=== PATIENT | female | born 1970 | race Caucasian/White ===

== ENCOUNTER → 2020-07-15 | Outpatient (CLI) | payer BC, OTHER ==
[~2020-07-15] MED LIST: None at this Time
[2020-07-15 14:07] LABS: BASOPHILS # (AUTO) 0.02 x10^3/uL (0-0.1); BASOPHILS % (AUTO) 1 % (0-1); EOSINOPHILS # (AUTO) 0.04 x10^3/uL (0-0.4); EOSINOPHILS % (AUTO) 1 % (1-7); LYMPHOCYTES # (AUTO) 1.11 x10^3/uL (1-3.4); LYMPHOCYTES % (AUTO) 26 % (22-44); MEAN CORPUSCULAR HEMOGLOBIN 28.6 pg (27.0-34.8); MEAN CORPUSCULAR HGB CONC 33.6 g/dL (32.4-35.8); MEAN CORPUSCULAR VOLUME 85.2 fL (80-100); MEAN PLATELET VOLUME 8.1 fL (7.4-10.4); MONOCYTES # (AUTO) 0.25 x10^3/uL (0.2-0.8); MONOCYTES % (AUTO) 6 % (2-9); NEUTROPHILS # (AUTO) 2.86 x10^3/uL (1.8-6.8); NEUTROPHILS % (AUTO) 67 % (42-75); PLATELET COUNT 288 x10^3/uL (130-400); RED BLOOD COUNT 4.61 x10^6/uL (3.82-5.3); RED CELL DISTRIBUTION WIDTH 12.9 % (9.6-15.2)
[2020-07-15 14:08] LABS: MD NO
[2020-07-15 14:10] LABS: ANION GAP 4 mmol/L (5-15); CALCIUM 8.9 mg/dL (8.5-10.1); CHLORIDE 110 mmol/L (98-107); CREATININE 0.59 mg/dL (0.55-1.02)
== END | disposition home or self-care (01) ==
LOC: STAR 13:09
PROVIDERS: ATTEND Obstetrics & Gynecology Maternal & Fetal Medicine
DX: Z01.818 Encounter for other preprocedural examination (principal)
CPT/HCPCS: 36415; 80048; 84702; 85025

== ENCOUNTER → 2020-07-17 | Outpatient (CLI) | payer OTHER | END | disposition home or self-care (01) | LOC: STAR 14:49 | PROVIDERS: ATTEND Anesthesiology | DX: Z01.818 Encounter for other preprocedural examination (principal); Z11.59 Encounter for screening for other viral diseases | CPT/HCPCS: 36415; 87635 ==

== ENCOUNTER 2020-07-22 13:18 | Observation (INO) | payer BC, OTHER ==
[~2020-07-22] VITALS: Ht 160 cm; Wt 72.9 kg
[2020-07-22] MEDS ORDERED: LACTATED RINGERS 1,000 ML IV SCH (14:06)
[2020-07-22] MEDS ORDERED: LIDOCAINE-MPF 1%, 2ML ONE (14:24)
[2020-07-22 14:27] LABS: HCG UR SG 1.006 (1.003-1.030)
[2020-07-22] MEDS ORDERED: PLEASE ENTER ALLERGIES MC SCH (14:30)
[2020-07-22] MEDS ORDERED: CHLORHEXIDINE 15 ML UDC MM ONE (14:30)
[2020-07-22] MEDS ORDERED: MIDAZOLAM 1 MG/ML, 2ML ONE (15:15)
[2020-07-22] MEDS ORDERED: FENTANYL PF 250 MCG/5ML ONE (15:15)
[2020-07-22] MEDS ORDERED: SCOPOLAMINE 1MG PATCH TD SCH ×2 (15:30)
[2020-07-22] MEDS ORDERED: ACETAMINOPHEN 500 MG TABLET PO ONE ×2 (15:30→16:00)
[2020-07-22] MEDS ORDERED: SCOPOLAMINE 1MG PATCH TD ONE (15:33)
[2020-07-22] MEDS ORDERED: ACETAMINOPHEN 500 MG TABLET ONE (15:34)
[2020-07-22] MEDS ORDERED: EPINEPHRINE 1 MG/ML, 1ML ONE (15:45)
[2020-07-22] MEDS ORDERED: BUPIVACAINE/PF 0.25% ONE (15:45)
[2020-07-22] MEDS ORDERED: FLUORESCEIN SODIUM 500 MG/5 ML ONE (15:45)
[2020-07-22] MEDS ORDERED: NEOSPORIN OINT, 15GM ONE (15:45)
[2020-07-22] MEDS ORDERED: PROPOFOL 50 ML ONE ×2 (15:59→16:59)
[2020-07-22] MEDS ORDERED: SUGAMMADEX 200 MG/2 ML IVPush ONE (16:10)
[2020-07-22] MEDS ORDERED: METOCLOPRAMIDE 5 MG/ML, 2ML ONE (16:10)
[2020-07-22] MEDS ORDERED: hydrALAzine 20 MG/ML, 1ML IV PRN (17:00)
[2020-07-22] MEDS ORDERED: METHOCARBAMOL 1,000 MG in DEXTROSE 5% 100 ML IV PRN (17:00)
[2020-07-22] MEDS ORDERED: MEPERIDINE/PF 25MG/0.5ML IVPush PRN (17:00)
[2020-07-22] MEDS ORDERED: HYDROmorphone 1 MG/ML, 1ML INJ IVPush PRN (17:00)
[2020-07-22] MEDS ORDERED: LABETALOL 5MG/ML, 20ML IV PRN (17:00)
[2020-07-22] MEDS ORDERED: ALBUTEROL SULFATE 2.5 MG/3 ML NPPB PRN (17:00)
[2020-07-22] MEDS ORDERED: OXYcodone 5 MG/5 ML ORAL.SOL UDC PO PRN (17:00)
[2020-07-22] MEDS ORDERED: PROMETHAZINE 25 MG/ML, 1ML IVPush PRN (17:00)
[2020-07-22] MEDS ORDERED: LORazepam 2 MG/ML, 1ML IVPush PRN (17:00)
[2020-07-22] MEDS ORDERED: FENTANYL PF 100 MCG/2ML ONE ×2 (17:33→18:23)
[2020-07-22] MEDS ORDERED: PROPOFOL 10 MG/ML, 20ML ONE (17:33)
[2020-07-22] MEDS ORDERED: CEFAZOLIN 1,000 MG ONE (17:33)
[2020-07-22] MEDS ORDERED: DEXAMETHASONE 4 MG/ML, 1ML ONE (17:33)
[2020-07-22] MEDS ORDERED: ONDANSETRON 2MG/ML, 2ML ONE (17:33)
[2020-07-22] MEDS ORDERED: ROCURONIUM 10MG/ML,5ML ONE (17:33)
[2020-07-22] MEDS: FENTANYL PF 100 MCG/2ML IV PRN ×3 (18:28→20:45)
[2020-07-22] MEDS ORDERED: OXYcodone 5 MG/5 ML ORAL.SOL UDC ONE (18:30)
[2020-07-22] MEDS: D5%-LACTATED RINGERS 1,000 ML IV SCH (21:55)
[2020-07-22] MEDS ORDERED: morphine SULFATE 10 MG/ML, 1ML IV PRN (22:00)
[2020-07-22] MEDS ORDERED: HYDROcodone/APAP 5/325 TABLET PO PRN (22:00)
[2020-07-22 23:06] VITALS: BP 113/74
[2020-07-22] MEDS: KETOROLAC 30 MG/1 ML IV SCH (23:52)
[2020-07-23] MEDS: D5%-LACTATED RINGERS 1,000 ML IV SCH ×2 (00:23→11:20)
[2020-07-23 00:51] VITALS: BP 110/72
[2020-07-23 03:05] VITALS: BP 106/69
[2020-07-23] MEDS ORDERED: DIPHENHYDRAMINE 25 MG CAPSULE ONE (05:10)
[2020-07-23] MEDS ORDERED: DIPHENHYDRAMINE 50 MG/ML, 1ML IVPush PRN (05:30)
[2020-07-23] MEDS ORDERED: DIPHENHYDRAMINE 25 MG CAPSULE PO PRN (05:30)
[2020-07-23] MEDS: KETOROLAC 30 MG/1 ML IV SCH ×2 (05:50→12:03)
[2020-07-23 07:01] VITALS: BP 113/72
[2020-07-23] MEDS: DOCUSATE 100 MG CAPSULE PO SCH ×2 (08:46→09:00)
[2020-07-23] MEDS ORDERED: SIMETHICONE 80 MG CHEW TAB PO SCH (09:00)
[2020-07-23] MEDS ORDERED: SODIUM CHLORIDE FLUSH 10ML SYR IVF SCH (09:00)
[2020-07-23] MEDS ORDERED: HYDR-3240 PO (11:28)
[2020-07-23] MEDS ORDERED: IBUP-1222 PO (11:28)
[2020-07-23] MEDS ORDERED: PARO10TA3 PO (11:29)
[2020-07-23] MEDS ORDERED: ONDA4TAB7 PO (11:29)
[2020-07-23 14:16] VITALS: BP 108/71
== END 2020-07-23 14:55 | disposition home or self-care (01) ==
LOC: OR 13:18 → 4NE 21:15 → OR 22:03
PROVIDERS: ADMIT Obstetrics & Gynecology Maternal & Fetal Medicine; ATTEND Obstetrics & Gynecology Maternal & Fetal Medicine
DX: C56.9 Malignant neoplasm of unspecified ovary (principal); R73.9 Hyperglycemia, unspecified; E66.9 Obesity, unspecified; Z15.01 Genetic susceptibility to malignant neoplasm of breast; Z85.3 Personal history of malignant neoplasm of breast; Z90.13 Acquired absence of bilateral breasts and nipples; Z80.41 Family history of malignant neoplasm of ovary
CPT/HCPCS: 36415; 58552; 81025; 85014; 85018; 88307; 96374; 96376; G0378; J0171; J0690; J1100; J1885; J2250; J2405; J2704; J2765; J2800; J3010; J3490; Q0163